=== PATIENT | male | born 1995 | race Two or more races ===

== ENCOUNTER 2018-04-28 10:44 | Emergency (ER) | payer BC, OTHER ==
[~2018-04-28] VITALS: Ht 188 cm; Wt 99.8 kg
[2018-04-28] MEDS ORDERED: SODIUM CHLORIDE 0.9% 1,000 ML IVB ONE (11:01)
[2018-04-28] MEDS ORDERED: LORazepam 2MG/ML-1ML VIAL IV ONE (11:15)
[2018-04-28 11:31] LABS: Basophils # (auto) 0.1 uL; Basophils % (auto) 0.5 % (0.0-2.0); Eosinophils # (auto) 0.3 uL; Eosinophils % (auto) 1.8 % (0.0-7.0); Hematocrit 51.3 % (41.0-53.0); Hemoglobin 17.4 g/dL (13.5-17.5); Lymphocytes # (auto) 5.1 uL; Lymphocytes % (auto) 31.5 % (10.0-50.0); Mean Corpuscular Hgb Conc. 33.9 g/dL (32.0-36.0); Mean Corpuscular Volume 88.4 fL (80.0-100.0); Monocytes # (auto) 1.5 uL; Monocytes % (auto) 9.1 % (0.0-12.0); Neutrophils # (auto) 9.3 uL; Neutrophils % (auto) 57.1 % (37.0-80.0); Nucleated Red Blood Cells % 0.1 %; Platelet Count (auto) 415 10^3/uL (140-450); Red Blood Cells 5.81 10^6/uL (4.5-5.90); Red Cell Distribution Width 12.6 % (11.8-14.3); White Blood Cell 16.3 10^3/uL (4.4-10.8)
[2018-04-28 11:56] LABS: Albumin 4.9 g/dL (3.4-5.0); Calcium 9.9 mg/dL (8.5-10.1); Potassium 3.9 mmol/L (3.5-5.1)
[2018-04-28 12:01] LABS: Bilirubin, Total 0.7 mg/dL (0.2-1.0); Total Protein 9.4 g/dL (6.4-8.2)
[2018-04-28 12:55] VITALS: BP 137/83
== END 2018-04-28 12:51 | disposition home or self-care (01) ==
LOC: ER 10:44
DX: F10.230 Alcohol dependence with withdrawal, uncomplicated (principal); R56.9 Unspecified convulsions; F17.210 Nicotine dependence, cigarettes, uncomplicated; F12.10 Cannabis abuse, uncomplicated; F14.10 Cocaine abuse, uncomplicated; Y90.0 Blood alcohol level of less than 20 mg/100 ml
CPT/HCPCS: 36415; 70450; 80053; 80320; 85025; 93005; 94761; 96374; 99284; J2060; J7030

== ENCOUNTER 2019-01-04 21:57 | Emergency (ER) | payer BC ==
[~2019-01-04] VITALS: Ht 190.5 cm; Wt 156.5 kg
[2019-01-04] MEDS ORDERED: TETANUS-DIPTH-ACEL PERTUSSIS 0.5ML SYRG IM ONE (22:15)
[2019-01-04] MEDS ORDERED: MORPHINE SULFATE 4 MG/ML SYR/VIAL IV ONE (22:15)
[2019-01-04] MEDS ORDERED: cefTRIAXone 1GM/50ML D5W 50 ML IV ONE (22:15)
[2019-01-04] MEDS ORDERED: ONDANSETRON HCL 4 MG/2 ML VIAL IV ONE (22:15)
[2019-01-04] MEDS ORDERED: HYDROmorphone HCL 2 MG/ML VL IV ONE (23:15)
[2019-01-04 23:27] LABS: Basophils # (auto) 0 uL; Basophils % (auto) 0.4 % (0.0-2.0); Eosinophils # (auto) 0.6 uL; Eosinophils % (auto) 5.1 % (0.0-7.0); Hematocrit 43.6 % (41.0-53.0); Lymphocytes # (auto) 2.1 uL; Lymphocytes % (auto) 17.6 % (10.0-50.0); Mean Corpuscular Hemoglobin 29.9 pg (28.0-32.0); Mean Corpuscular Hgb Conc. 34.4 g/dL (32.0-36.0); Mean Corpuscular Volume 87.1 fL (80.0-100.0); Monocytes # (auto) 1.1 uL; Monocytes % (auto) 9.1 % (0.0-12.0); Neutrophils # (auto) 8.2 uL; Neutrophils % (auto) 67.8 % (37.0-80.0); Nucleated Red Blood Cells % 0.1 %; Platelet Count (auto) 272 10^3/uL (140-450); Red Blood Cells 5.01 10^6/uL (4.5-5.90); Red Cell Distribution Width 12.7 % (11.8-14.3); White Blood Cell 12.1 10^3/uL (4.4-10.8)
[2019-01-04 23:45] LABS: Alanine Aminotransferase 79 U/L (16-61); Anion Gap 6 (5-15); Aspartate Aminotransferase 33 U/L (15-37); BUN/Creatinine Ratio 11.1; Blood Alcohol < 3.0 mg/dL (0-5); Blood Urea Nitrogen 10 mg/dL (7-18); Calcium 8.7 mg/dL (8.5-10.1); Carbon Dioxide 24 mmol/L (21-32); Chloride 106 mmol/L (98-107); GFR African American 134 mL/min; GFR Non-African American 111 mL/min; Glucose 100 mg/dL (74-106); Potassium 3.8 mmol/L (3.5-5.1); Sodium 136 mmol/L (136-145)
[2019-01-04] MEDS ORDERED: MAGNESIUM SULFATE 1GM/100ML 100 ML IV ONE (23:45)
[2019-01-04 23:47] LABS: Alkaline Phosphatase 50 U/L (45-117); Bilirubin, Total 0.7 mg/dL (0.2-1.0); Total Protein 7.8 g/dL (6.4-8.2)
[2019-01-04 23:51] LABS: Partial Thromboplastin Time 25.4 sec (23.64-32.05)
[2019-01-05] MEDS ORDERED: IOHEXOL 300 MG/ML 100ML BOTTLE IJ ONE (00:35)
[2019-01-05 04:30] VITALS: BP 111/79
== END 2019-01-05 04:50 | disposition home or self-care (01) ==
LOC: ER 21:57
DX: S41.031A Puncture wound without foreign body of right shoulder, initial encounter (principal); S21.131A Puncture wound without foreign body of right front wall of thorax without penetration into thoracic cavity, initial encounter; F17.210 Nicotine dependence, cigarettes, uncomplicated; F12.10 Cannabis abuse, uncomplicated; F14.10 Cocaine abuse, uncomplicated; W34.09XA Accidental discharge from other specified firearms, initial encounter; Y93.89 Activity, other specified; Y99.8 Other external cause status; Y92.89 Other specified places as the place of occurrence of the external cause
CPT/HCPCS: 36415; 71250; 71260; 73060; 74176; 74177; 80053; 80320; 85025; 85610; 85730; 86850; 86900; 86901; 90471; 90715; 94761; 96365; 96375; 99284; J0696; J1170; J2270; J2405; J7030; Q9967